=== PATIENT | male | born 1985 | race Caucasian/White ===

== ENCOUNTER 2018-02-06 00:10 | Emergency (ER) | payer BC ==
[~2018-02-06] VITALS: Ht 175.3 cm; Wt 82.0 kg
[2018-02-06] MEDS ORDERED: IBUPROFEN 600MG TABLET PO STA (00:59)
[2018-02-06] MEDS ORDERED: LIDOCAINE HCL/PF 1% 2ML VIAL INFIL ONE (01:30)
[2018-02-06] MEDS ORDERED: BACITRACIN ZINC OINT UDPKT TOP ONE (01:30)
[2018-02-06] MEDS ORDERED: LIDOCAINE HCL/PF 1% 10 MG/ML 5ML VIAL IJ NR ×2 (02:45→04:45)
[2018-02-06 03:55] VITALS: BP 120/82
[2018-02-06] MEDS ORDERED: CEFTRIAXONE SODIUM 1 G/VIAL IM NR (04:45)
== END 2018-02-06 05:14 | disposition home or self-care (01) ==
LOC: ER 00:10
DX: S62.397B Other fracture of fifth metacarpal bone, left hand, initial encounter for open fracture (principal); S00.01XA Abrasion of scalp, initial encounter; W01.118A Fall on same level from slipping, tripping and stumbling with subsequent striking against other sharp object, initial encounter; Y93.89 Activity, other specified; Y92.89 Other specified places as the place of occurrence of the external cause
CPT/HCPCS: 12002; 73130; 99284; J3490; J0696